=== PATIENT | female | born 1990 | race Caucasian/White ===

== ENCOUNTER 2017-03-02 08:54 | Emergency (ER) | payer SELFPAY ==
--- NOTE | 2017-03-02 09:04 | Emergency Department Record ---
History of Present Illness - General Chief complaint: Vaginal bleeding Stated complaint: vaginal bleeding Time Seen by Provider: 03/02/17 08:59 Source: Patient, Family Mode of Arrival: Ambulatory Limitations: No limitations - History of Present Illness Initial comments: 26 yo female presents vaginal bleeding. She reports she is in her first trimester. She had a positive test at [facility]. Today she presents with bleeding. This is her 4th . She has had 2 live births and a miscarriage. Her OB will be Lila Bang. 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 Her last cycle was in December. she has had some mild discharge. Mild cramps. Complaint: Vaginal bleeding -: Hour(s) Location: Suprapubic Radiation: Suprapubic Severity: Moderate Quality: Cramping Consistency: Intermittent Improves with: None Worsens with: None Patient : No Associated Symptoms: Denies other symptoms - Related Data Home Medications Medication Instructions Recorded Confirmed Last Taken Multivitamin [Flintstones] 1 each PO DAILY 03/02/17 03/02/17 1 Day Ago ~03/01/17 Allergies Allergy/AdvReac Type Severity Reaction Status Date / Time No Known Drug Allergies Allergy Verified 03/02/17 09:08 Review of Systems Constitutional: Denies: Chills, Fever, Malaise, Weakness Eyes: Denies: Eye discharge ENT: Denies: Congestion, Throat pain Respiratory: Denies: Cough, Dyspnea, Hemoptysis, Stridor, Wheezes Cardiovascular: Denies: Chest pain, Syncope Endocrine: Denies: Fatigue Gastrointestinal: Reports: As per HPI, Abdominal pain. Denies: Diarrhea, Nausea , Vomiting Genitourinary: Reports: Abnormal menses, Discharge. Denies: Dysuria, Frequency , Hematuria, Urgency Musculoskeletal: Denies: Arthralgia, Back pain, Neck pain, Other Skin: Denies: Bruising, Change in color, Rash Neurological: Denies: Headache, Numbness, Weakness Psychiatric: Denies: Anxiety Hematological/Lymphatic: Denies: Blood Clots, Easy bleeding, Easy bruising, Swollen glands Physical Exam - General General Appearance: Alert, Oriented x3, Cooperative, No acute distress Limitations: No limitations - Head Head exam: Atraumatic, Normocephalic, Normal inspection - Eye Eye exam: Normal appearance, PERRL. negative: Conjunctival injection, Scleral icterus - ENT ENT exam: Normal exam, Mucous membranes moist Ear exam: Normal external inspection Nasal Exam: Normal inspection Mouth exam: Normal external inspection - Neck Neck exam: Normal inspection, Full ROM. negative: Tenderness - Respiratory Respiratory exam: Normal lung sounds bilaterally. negative: Respiratory distress - Cardiovascular Cardiovascular Exam: Regular rate, Normal rhythm, Normal heart sounds - GI/Abdominal GI/Abdominal exam: Soft. negative: Distended, Guarding, Rebound, Rigid, Tenderness - Rectal Rectal exam: Deferred - exam: Normal bimanual exam, Vaginal bleeding (thin light blood). negative: Abnormal external exam, Adnexal mass (L), Adnexal mass (R), Adnexal tenderness ( L), Adnexal tenderness (R), Cervical discharge, cervical motion tenderness, Vaginal discharge, Vaginal erythema - Extremities Extremities exam: Normal inspection, Full ROM, Normal capillary refill. negative: Tenderness - Back Back exam: Reports: Normal inspection, Full ROM. Denies: Muscle spasm, Rash noted, Tenderness - Neurological Neurological exam: Alert, Normal gait, Oriented X3 - Psychiatric Psychiatric exam: Normal affect, Normal mood - Skin Skin exam: Dry, Intact, Normal color, Warm Course - Reevaluation(s) Reevaluation #1: 03/02/17 09:28 No acute changes on the CBC 03/02/17 09:54 The HCG is 965 I reviewed [facility]. No [facility] records. Will call [facility] for recent ED visit 03/02/17 10:48 Rh Positive 03/02/17 11:05 The US was reviewed. Thickened endometrium but no convincing evidence of IUP, 1.6cm L cyst likely corpus luteal cyst. I discussed the results with the patient. I discussed the need for very close follow up and that this could be a miscarriage, early or ectopic. 03/02/17 11:[address] Reyes. A repeat level is ordered for Sunday. She will be scheduled for an US prior to next appointment 03/21/ She and her partner will be treated. Medical Decision Making - Lab Data Result diagrams: 03/02/17 09:11 03/02/17 09:11 Disposition Disposition: Discharge Clinical Impression: Threatened miscarriage in early , Trichomonal vaginitis Disposition: Home, Self-Care Condition: (1) Good Instructions: Threatened Miscarriage (ED), Trichomoniasis (ED) Additional Instructions: Return or be seen immediately if worse, pain, vomiting or concerns Call Dr Bang for close recheck of your symptoms that brought you to the ER You will need a repeat HCG level on Sunday. The results will be sent to Dr Bang. You will need to have your sexual partner treated as well for the trichomonas Referrals: LILA BANG [NURSE PRACTITIONER] - Forms: Patient Portal Access Time of Disposition: 11:15 Quality - Quality Measures Quality Measures: N/A - Blood Pressure Screening Does Patient Have Any of the Following: No Blood Pressure Classification: Normal BP Reading Systolic Measurement: 113 Diastolic Measurement: 63 Screening for High Blood Pressure: < Normal BP, F/U Not Required > [G8783]
[2017-03-02 09:17] LABS: EOS % 2.1 % (0-6); GRAN % 39.9 % (47-80); HEMATOCRIT 38.9 % (35.0-47.0); HEMOGLOBIN 13.1 gm/dl (11.6-16.0); MEAN CELL VOLUME 90.7 fl (81-97); MEAN CORPUSCULAR HEMOGLOBIN 30.5 pg (27-33); MEAN CORPUSCULAR HGB CONC 33.7 g/dl (32-36); MEAN PLATELET VOLUME 9.4 fl (7.4-10.4); PLATELET COUNT 264 K/uL (130-400); RED BLOOD COUNT 4.29 M/uL (3.80-5.40); WHITE BLOOD COUNT W/O DIFF 5.3 K/uL (4.2-12.2)
[2017-03-02 09:34] LABS: TOTAL B-hCG 965.6 mIU/mL
[2017-03-02 09:39] LABS: BLOOD UREA NITROGEN 12 mg/dL (6-20); CREATININE 0.5 mg/dL (0.5-0.9); EST GLOMERULAR FILTRATION RATE > 60 mL/min
[2017-03-02 09:42] LABS: GLUCOSE,RANDOM 99 mg/dL (74-109)
[2017-03-02 10:58] LABS: URINE APPEARANCE SL CLOUDY; URINE BILIRUBIN NEGATIVE (NEGATIVE); URINE BLOOD TRACE-I (NEGATIVE); URINE COLOR YELLOW; URINE GLUCOSE (UA) NEGATIVE (NEGATIVE); URINE KETONE NEGATIVE (NEGATIVE); URINE LEUKOCYTE ESTERASE NEGATIVE (NEGATIVE); URINE NITRITE NEGATIVE (NEGATIVE); URINE PROTEIN NEGATIVE (NEGATIVE); URINE UROBILINOGEN 0.2 E.U./dL (0.20 - 1.00)
[2017-03-02 11:09] LABS: URINE RBC 0 - 2 (NONE SEEN); URINE WBC NONE SEEN (0-2/hpf)
[2017-03-02 11:10] LABS: URINE BACTERIA NONE SEEN; URINE EPITHELIAL CELLS 0 - 2 (FEW)
[2017-03-02] MEDS ORDERED: METRONIDAZOLE 250 MG TABLET PO ONE (11:24)
--- NOTE | 2017-03-02 15:14 | ULTRASOUND REPORT ---
EXAM: ULTRASOUND - EARLY (4-13 WEEKS) HISTORY: SPOTTING DARK BLOOD. CRAMPING. TECHNIQUE: Transabdominal ultrasound examination of the pelvis was performed. Transvaginal scanning was also performed for further evaluation of the uterus and adnexa. Comparison: None. FINDINGS: TRANSABDOMINAL PELVIC ULTRASOUND: The uterus is normal in position and is smoothly marginated. It measures 9.7 x 4.6 x 5.6 cm. No definite myometrial mass. No intrauterine gestational sac visualized. The left ovary is visualized measuring 3.5 x 3.2 x 1.9 cm. There is a cystic structure within the left ovary measuring 1.3 x 1.4 cm. Blood flow is demonstrated within the left ovary with color Doppler and Duplex Doppler evaluation. Spectral analysis demonstrates venous and arterial waveforms in the left ovary. The right ovary is visualized and normal in appearance measuring 2.6 x 2.2 x 1.7 cm. Blood flow is demonstrated within the right ovary with color Doppler and Duplex Doppler evaluation. Spectral analysis demonstrates a venous waveform in the right ovary. The endometrium is not optimally visualized though its thickness is estimated at 14 mm. TRANSVAGINAL PELVIC ULTRASOUND: No myometrial mass is seen. The endometrium thickness is 13 mm which is within the limits of normal for a premenopausal patient. No intra or extrauterine gestational sac is seen. The left ovary is visualized and normal in size measuring 2.1 x 3.1 x 2.2 cm. There is a somewhat complex cystic structure within the left ovary measuring 1.6 x 1.4 cm. This is nonspecific, but likely a corpus luteum. Blood flow is demonstrated within the left ovary with color Doppler and Duplex Doppler evaluation. Spectral analysis demonstrates venous and arterial waveforms within the left ovary. The right ovary is visualized and normal in size measuring 2.5 x 2.1 x 1.2 cm. Blood flow is demonstrated within the right ovary with color Doppler and Duplex Doppler evaluation. Spectral analysis demonstrates venous waveforms within the right ovary. No definite free fluid in the cul-de-sac. IMPRESSION: 1. NO CONVINCING INTRAUTERINE OR EXTRAUTERINE GESTATIONAL SAC. THERE ARE A COUPLE TINY CYSTIC AREAS, HOWEVER, WITHIN THE ENDOMETRIUM MEASURING UP TO 2 MM. THE ENDOMETRIAL THICKNESS IS 13 MM. 2. SOMEWHAT COMPLEX CYSTIC STRUCTURE IN THE LEFT OVARY LIKELY A CORPUS LUTEUM. JOB NUMBER: [id number] [facility]
[2017-03-03 13:10] LABS: GC SPECIMEN TYPE Vaginal
== END 2017-03-02 11:55 | disposition home or self-care (01) ==
LOC: ER 08:54
DX: O20.0 Threatened abortion (principal); O98.311 Other infections with a predominantly sexual mode of transmission complicating pregnancy, first trimester; A59.01 Trichomonal vulvovaginitis; O36.0910 Maternal care for other rhesus isoimmunization, first trimester, not applicable or unspecified; Z3A.00 Weeks of gestation of pregnancy not specified
CPT/HCPCS: 99284 ×2; 85025; 84702; 80048; 81001; 86901; 76817; 76801; Q0111; 87210

== ENCOUNTER 2017-07-08 13:01 | Emergency (ER) | payer SELFPAY | END 2017-07-08 15:02 | disposition left against medical advice (07) | LOC: ER 13:01 | DX: Z53.20 Procedure and treatment not carried out because of patient's decision for unspecified reasons (principal) ==